=== PATIENT | female | born 1990 | race Caucasian/White ===

== ENCOUNTER 2019-03-26 01:54 | Emergency (ER) | payer OTHER ==
[~2019-03-26] VITALS: Ht 165.1 cm; Wt 77.6 kg
[2019-03-26 01:58] VITALS: Ht 165.1 cm; Wt 77.6 kg
[2019-03-26 02:48] LABS: BASOPHIL % 0.5 % (0-2); PLATELET COUNT 224 x10^3mcL (130-400); RED CELL DISTRIBUTION WIDTH 12.8 % (11.5-14.5)
[2019-03-26 03:15] LABS: CARBON DIOXIDE 26.5 mmol/L (21-32); CHLORIDE SERUM 102 mmol/L (98-107); CREATININE SERUM 0.7 mg/dL (0.6-1.0); GFR1 > 60 mL/min; GLUCOSE SERUM 96 mg/dL (74-106); POTASSIUM SERUM 4.2 mmol/L (3.5-5.1); SODIUM SERUM 136 mmol/L (136-145)
[2019-03-26 03:20] LABS: ALBUMIN 3.4 g/dL (3.4-5.0); ALKALINE PHOSPHATASE 66 U/L (46-116); ALT/SGPT 14 U/L (14-59); AMYLASE 47 U/L (25-115); AST/SGOT 5 U/L (15-37); BILIRUBIN TOTAL 0.24 mg/dL (0.20-1.00); LIPASE 188 IU/L (73-393); TOTAL PROTEIN, SERUM 7.1 g/dL (6.4-8.2)
[2019-03-26 04:41] VITALS: BP 109/65
[2019-03-26 04:46] LABS: microscopic required? YES; urine erythrocyte TRACE (NEGATIVE)
== END 2019-03-26 04:41 | disposition home or self-care (01) ==
LOC: ED 01:54
PROVIDERS: Emergency Medicine
DX: K80.70 Calculus of gallbladder and bile duct without cholecystitis without obstruction (principal)
CPT/HCPCS: J1885; J2405; J3010; J7030; Q0092

== ENCOUNTER 2019-06-01 17:11 | Emergency (ER) | payer OTHER ==
[~2019-06-01] VITALS: Ht 165.1 cm; Wt 78.5 kg
[2019-06-01 17:34] VITALS: BP 107/72; Ht 165.1 cm; Wt 78.5 kg
== END 2019-06-01 18:19 | disposition home or self-care (01) ==
LOC: ED 17:11
DX: S50.862A Insect bite (nonvenomous) of left forearm, initial encounter (principal); L08.9 Local infection of the skin and subcutaneous tissue, unspecified; Z98.890 Other specified postprocedural states; W57.XXXA Bitten or stung by nonvenomous insect and other nonvenomous arthropods, initial encounter; Y93.89 Activity, other specified; Y92.89 Other specified places as the place of occurrence of the external cause; Y99.8 Other external cause status